=== PATIENT | male | born 1995 | race Caucasian/White ===

== ENCOUNTER 2019-07-23 08:38 | Outpatient (CLI) | payer OTHER, SELFPAY ==
[2019-07-23 09:25] LABS: Hematocrit 46.2 % (42.0-52.0); Hemoglobin 14.9 g/dL (14.0-18.0)
[2019-07-28 05:39] LABS: FSH 1.7 mIU/mL (1.6-8.0); LH 3.4 mIU/mL (1.5-9.3); Prolactin 8.8 ng/mL (***)
[2019-07-28 15:26] LABS: Testosterone Free 125.5 pg/mL (35.0-155.0); Testosterone Total 378 ng/dL (250-1100)
[2019-07-30 21:41] LABS: Estradiol, Ultrasensitive 55 pg/mL (< OR = 29)
== END 2019-07-23 08:39 | disposition home or self-care (01) ==
PROVIDERS: PCP Family Medicine; Visit Provider Urology
DX: E29.1 Testicular hypofunction (principal)
CPT/HCPCS: 36415; 82670; 83001; 83002; 84146; 84402; 84403; 85014; 85018

== ENCOUNTER → 2022-02-21 08:16 | Outpatient (CLI) | payer BC, SELFPAY ==
--- NOTE | ~2022-02-21 | XR_ITS ---
EXAMINATION: XR foot RT min 3V DATE: 02/21/2022 10:04 INDICATION: Pain, redness and swelling of the second toe TECHNIQUE: Dorsoplantar, lateral, and 2 oblique views of the right foot were obtained. COMPARISON: None. FINDINGS: There is no fracture, dislocation, or subluxation. The bones, soft tissues, and joint space s are normal. IMPRESSION: 1. No acute osseous abnormality. Reviewed, dictated and finalized at location A.
== END ==
PROVIDERS: PCP Family Medicine; Visit Provider Emergency Medicine
DX: M79.89 Other specified soft tissue disorders (principal)
CPT/HCPCS: 73630